=== PATIENT | female | born 1995 ===

== ENCOUNTER → 2022-06-02 | Outpatient (CLI) | payer SELFPAY | END | disposition home or self-care (01) | LOC: LAB 14:28 → LAB SHORT 14:28 | DX: O09.892 Supervision of other high risk pregnancies, second trimester (principal) | CPT/HCPCS: 87081; 87150 ==

== ENCOUNTER 2022-06-18 19:55 | Inpatient (IN) | payer SELFPAY ==
[~2022-06-18] VITALS: Ht 157.5 cm; Wt 64.5 kg
[2022-06-18 20:16] VITALS: BP 109/64
[2022-06-18] MEDS ORDERED: PRENATAL TABLE1 EAC2 PO (20:35)
[2022-06-18 21:04] LABS: BASOPHILS ABSOLUTE AUTO 0.03 K/mm3 (0.00-0.23); BASOPHILS PERCENT AUTO 0 % (0-2); EOSINOPHILS ABSOLUTE AUTO 0.07 K/mm3 (0.00-0.68); EOSINOPHILS PERCENT AUTO 1 % (0-6); Hematocrit 30.7 % (33.0-51.0); Hemoglobin 9.6 g/dL (11.5-16.0); IMMATURE GRAN ABSOLUTE AUTO 0.02 K/mm3 (0.00-0.10); IMMATURE GRAN PERCENT AUTO 0 % (0-1); LYMPHOCYTES ABSOLUTE AUTO 1.77 K/mm3 (0.84-5.20); LYMPHOCYTES PERCENT AUTO 25 % (21-46); MONOCYTES ABSOLUTE AUTO 0.64 K/mm3 (0.16-1.47); MONOCYTES PERCENT AUTO 9 % (4-13); Mean Corpuscular HGB 21.3 pg (26.0-34.0); Mean Corpuscular HGB Conc 31.3 g/dL (31.5-36.5); Mean Corpuscular Volume 68 fL (80-100); Mean Platelet Volume 11.5 fL (9.1-12.4); NEUTROPHILS ABSOLUTE AUTO 4.54 K/mm3 (1.96-9.15); NEUTROPHILS PERCENT AUTO 64 % (41-73); Platelet Count 281 K/mm3 (150-400); RDW Coefficient Variation 17.5 % (11.7-14.2); RDW Standard Deviation 42.3 fL (35.1-46.3); White Blood Cell Count 7.07 K/mm3 (4.00-11.30)
[2022-06-19] VITALS (24 sets, daily range): BP systolic 91–133; BP diastolic 54–90
--- NOTE | 2022-06-19 07:00 | NUR ---
DR. HERNANDEZ REPORTED THAT PT HAS DIET CONTROLLED GESTATIONAL DIABETES AND THAT WE DON'T NEED TO GET BLOOD SUGARS ON PT AT ALL THROUGHOUT LABOR OR ON ADMIT.
[2022-06-20] VITALS (20 sets, daily range): BP systolic 97–134; BP diastolic 54–98
--- NOTE | 2022-06-20 19:34 | NUR ---
nurse in with patient.
[2022-06-21 05:30] LABS: BASOPHILS ABSOLUTE AUTO 0.05 K/mm3 (0.00-0.23); BASOPHILS PERCENT AUTO 0 % (0-2); EOSINOPHILS PERCENT AUTO 1 % (0-6); Hematocrit 26.7 % (33.0-51.0); Hemoglobin 8.3 g/dL (11.5-16.0); IMMATURE GRAN ABSOLUTE AUTO 0.08 K/mm3 (0.00-0.10); IMMATURE GRAN PERCENT AUTO 1 % (0-1); LYMPHOCYTES ABSOLUTE AUTO 1.57 K/mm3 (0.84-5.20); LYMPHOCYTES PERCENT AUTO 11 % (21-46); MONOCYTES ABSOLUTE AUTO 1.43 K/mm3 (0.16-1.47); MONOCYTES PERCENT AUTO 10 % (4-13); Mean Corpuscular HGB 21.3 pg (26.0-34.0); Mean Corpuscular HGB Conc 31.1 g/dL (31.5-36.5); Mean Corpuscular Volume 69 fL (80-100); Mean Platelet Volume 11.1 fL (9.1-12.4); NEUTROPHILS ABSOLUTE AUTO 11.77 K/mm3 (1.96-9.15); NEUTROPHILS PERCENT AUTO 79 % (41-73); Platelet Count 235 K/mm3 (150-400); RDW Coefficient Variation 17.9 % (11.7-14.2); RDW Standard Deviation 43.6 fL (35.1-46.3)
[2022-06-21 07:06] VITALS: BP 101/51
[2022-06-21 10:57] VITALS: BP 106/57
--- NOTE | 2022-06-21 13:36 | NUR ---
D/C INSTRUCTIONS GIVEN IN [place] AND EXPLAINED WITH NO QUESTIONS SALES REPRESENTATIVE ADDING MACHINES PHONE AVAILABLE, DR HERNANDEZ ALSO ANSWERED ALL QUESTIONS IN [place],. FOB SPEAKS [place] WELL
[2022-06-21 15:47] VITALS: BP 110/56
[2022-06-21 20:46] VITALS: BP 110/58
--- NOTE | 2022-06-22 00:46 | NUR ---
2130: PRINTED DISCHARGE INSTRUCTIONS ANSWERED ADDITIONAL QUESTIONS BY SIGNIFICANT OTHER. ID BANDS MATCHED WITH NEW BORN AND VERIFICATION FORM. DISCHARGE TO HOME TO CARE OF SIGNIFICANT OTHER.
== END 2022-06-21 21:30 | disposition home or self-care (01) | DRG 807 ==
LOC: OBS 19:55 → BC 19:59 → OBS 20:08 → BC 20:09
PROVIDERS: Internal Medicine Gastroenterology; ADMIT Family Medicine
PROC: 10D07Z6 Extraction of Products of Conception, Vacuum, Via Natural or Artificial Opening (ICD-10-PCS; principal; 2022-06-20)
PROC: 10907ZC Drainage of Amniotic Fluid, Therapeutic from Products of Conception, Via Natural or Artificial Opening (ICD-10-PCS; 2022-06-20)
PROC: 3E0R3BZ Introduction of Anesthetic Agent into Spinal Canal, Percutaneous Approach (ICD-10-PCS; 2022-06-20)
PROC: 00HU33Z Insertion of Infusion Device into Spinal Canal, Percutaneous Approach (ICD-10-PCS; 2022-06-20)
PROC: 0HQ9XZZ Repair Perineum Skin, External Approach (ICD-10-PCS; 2022-06-20)
DX: O24.420 Gestational diabetes mellitus in childbirth, diet controlled (principal); Z37.0 Single live birth; O99.824 Streptococcus B carrier state complicating childbirth; O76 Abnormality in fetal heart rate and rhythm complicating labor and delivery; O70.0 First degree perineal laceration during delivery; Z3A.38 38 weeks gestation of pregnancy
CPT/HCPCS: 36415; 51701; 51702; 59070; 82947; 85025; 86850; 86900; 86901; 90471; 90707; A9270; J0290; J1885; J2210; J2590; J3010; J7120

== ENCOUNTER → 2024-01-05 | Outpatient (CLI) | payer SELFPAY ==
[~2024-01-05] MED LIST: PRENATAL TABLE1 EAC2 PO
[2024-01-05 17:03] LABS: Bacterial Vaginosis PCR Negative (NEGATIVE); Candida Group, PCR NOT DETECTED (NOT DETECT); Candida glabrata-krusei, PCR NOT DETECTED (NOT DETECT)
== END | disposition home or self-care (01) ==
LOC: LAB 10:07 → LAB SHORT 10:07
PROVIDERS: Obstetrics & Gynecology
DX: Z01.419 Encounter for gynecological examination (general) (routine) without abnormal findings (principal); N76.0 Acute vaginitis
CPT/HCPCS: 87481; 87661; 87801